=== PATIENT | female | born 1995 | race American Indian/Alaskan Native ===

== ENCOUNTER 2021-03-18 17:17 | Emergency (ER) | payer BC ==
[2021-03-18] MEDS ORDERED: SODIUM CHLORIDE 0.9% 1000 ML 1,000 ML IV ONE ×2 (18:26→19:01)
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
[2021-03-18 19:12] LABS: Basophils # (Auto) 0.1 K/mm3 (0.0-0.1); Basophils % (Auto) 0.9 % (0.0-1.8); Eosinophils # (Auto) 0.1 K/mm3 (0.0-0.4); Eosinophils % (Auto) 1.5 % (0.0-4.3); Hematocrit 37.5 % (30.3-42.9); Hemoglobin 11.7 gm/dl (10.1-14.3); Lymphocytes # (Auto) 1.1 K/mm3 (1.2-5.4); Lymphocytes % (Auto) 19.6 % (13.4-35.0); Mean Corpuscular HGB Conc 31 % (30-34); Mean Corpuscular Volume 85 fl (79-97); Monocytes # (Auto) 0.3 K/mm3 (0.0-0.8); Monocytes % (Auto) 6.1 % (0.0-7.3); Platelet Count 335 K/mm3 (140-440); Red Blood Count 4.44 M/mm3 (3.65-5.03); Red Cell Distribution Width 12.7 % (13.2-15.2)
[2021-03-18 19:32] LABS: Blood Urea Nitrogen 8 mg/dL (7-17); Calcium 9.4 mg/dL (8.4-10.2); Hemolysis Index 2
[2021-03-18 19:51] LABS: BUN/Creatinine Ratio 11
[2021-03-18 21:08] LABS: ABG Base Excess -1.5 mmol/L (-2.0-3.0); ABG Methemoglobin 0.5 % (0.0-1.5); ABG Oxygen Saturation 99.7 % (95.0-99.0); ABG PCO2 38.3 mm Hg; ABG PH 7.397 pH Units (7.350-7.450)
[2021-03-18 21:28] VITALS: BP 119/84
--- NOTE | 2021-03-22 08:35 | Electrocardiograph Report ---
[facility] Test Date: 2021-03-18 Test Time: 19:44:04 Pat Name: PURVI NAIDU Department: Room: Gender: F Muffler Hand: RAJ : 1995 Requested By: GERMAIN REILLY Order Number: [id number] Reading MD: Padma Dong Measurements Intervals [place] Rate: 77 P: 79 TX: 135 QRS: 60 QRSD: 81 T: 62 QT: 358 QTc: 404 Interpretive Statements Sinus rhythm No previous ECG available for comparison Electronically Signed On 03-22-2021 8:35:34 EST by Padma Dong
== END 2021-03-18 21:28 | disposition home or self-care (01) ==
LOC: ED 17:17
DX: J02.9 Acute pharyngitis, unspecified (principal); X00.1XXA Exposure to smoke in uncontrolled fire in building or structure, initial encounter; Y93.89 Activity, other specified; Y92.89 Other specified places as the place of occurrence of the external cause; Y99.8 Other external cause status
CPT/HCPCS: 36415; 71046; 80048; 82140; 82803; 84703; 85025; 93005; 99283